=== PATIENT | female | born 1990 | race Two or more races ===

== ENCOUNTER 2019-10-17 21:53 | Observation (INO) | payer MEDICAID, OTHER ==
[~2019-10-17] VITALS: Ht 147.3 cm; Wt 61.2 kg
[2019-10-17] MEDS ORDERED: PREN-153 OR (22:29)
[2019-10-17 23:08] LABS: Urine Bacteria MOD /hpf (None Seen); Urine Blood 2+ /uL (Negative); Urine Mucus FEW (None Seen); Urine Specific Gravity 1.013 (1.001-1.035); Urine WBC 244 /hpf (0 - 5); Urine WBC Clumps PRESENT /hpf (None Seen)
[2019-10-17 23:21] LABS: Amphetamine Screen, Urine NEGATIVE (NEGATIVE); Barbiturate Scree,Urine NEGATIVE (NEGATIVE); Benzodiazephine Screen, Urine NEGATIVE (NEGATIVE); Cannabinoid Screen, Urine NEGATIVE (NEGATIVE); Cocaine Screen, Urine NEGATIVE (NEGATIVE); Opiate Scree,Urine NEGATIVE (NEGATIVE); Phencyclidine Screen, Urine NEGATIVE (NEGATIVE)
== END 2019-10-18 00:40 | disposition home or self-care (01) | DRG 566 ==
LOC: LDRP 21:53
PROVIDERS: ADMIT Specialist; ATTEND Specialist
DX: O23.42 Unspecified infection of urinary tract in pregnancy, second trimester (principal); O26.872 Cervical shortening, second trimester; Z3A.21 21 weeks gestation of pregnancy
CPT/HCPCS: 59025; 76815; 80307; 81001; 81002; 84112; 87086; G0378; Q0114; 87088; 87186